=== PATIENT | male | born 1945 | race Caucasian/White ===

== ENCOUNTER 2019-06-07 15:53 | Inpatient (IN) | payer OTHER, MEDICARE ==
[~2019-06-07] VITALS: Ht 185.4 cm; Wt 139.1 kg
[2019-06-07 16:33] LABS: BASOPHILS # (AUTO) 0.1 X10'3 (0-0.2); BASOPHILS % (AUTO) 0.5 % (0-1); EOSINOPHILS # (AUTO) 0.4 X10'3 (0-0.9); EOSINOPHILS % (AUTO) 2.8 % (0-6); HEMATOCRIT 50.2 % (42.0-52.0); HEMOGLOBIN 16.6 g/dl (14.0-17.9); LYMPHOCYTES # (AUTO) 1.5 X10'3 (1.1-4.8); MEAN CORPUSCULAR HEMOGLOBIN 30.6 PG (27.0-31.0); MEAN CORPUSCULAR VOLUME 92.8 FL (78-98); MEAN PLATELET VOLUME 9.4 FL (7.4-10.4); MONOCYTES # (AUTO) 0.7 X10'3 (0-0.9); MONOCYTES % (AUTO) 5.4 % (2-12); NEUTROPHILS # (AUTO) 10.2 X10'3 (1.8-7.7); NEUTROPHILS % (AUTO) 79.3 % (42-75); PLATELET COUNT 232 X10'3 (140-440); RED BLOOD COUNT 5.41 X10'6 (4.70-6.10); RED CELL DISTRIBUTION WIDTH 15.1 % (11.5-14.5); WHITE BLOOD COUNT 12.9 X10'3 (4.5-11.0)
[2019-06-07 16:50] LABS: ALANINE AMINOTRANSFERASE 24 U/L (12-78); ALBUMIN 4.2 G/DL (3.4-5.0); ALKALINE PHOSPHATASE 71 IU/L (46-116); ANION GAP 5 (8-16); ASPARTATE AMINO TRANSFERASE 23 U/L (10-37); BILIRUBIN,TOTAL 0.9 MG/DL (0.1-1.0); BLOOD UREA NITROGEN 20 MG/DL (7-18); BUN/CREATININE RATIO 20.2 (5.4-32.0); CALCIUM 9.9 MG/DL (8.5-10.1); CHLORIDE 101 MMOL/L (99-107); CREATININE 0.99 MG/DL (0.60-1.10); GLUCOSE 148 MG/DL (70-104); POTASSIUM 5.2 MMOL/L (3.5-5.1); SODIUM 138 MMOL/L (135-145); TOTAL CARBON DIOXIDE 32.3 MMOL/L (24-32); TOTAL PROTEIN 8.3 G/DL (6.4-8.2); eGFR 74 ML/MIN
[2019-06-07] MEDS ORDERED: iohexol 350MG/ML 100ml bottle IV ONE (17:07)
[2019-06-07] MEDS ORDERED: heparin 10,000 units/1 ML INJ IV ONE (18:45)
[2019-06-07] MEDS ORDERED: nitroGLYCERIN 0.4mg SUBLingual tab SL PRN ×2 (18:45→20:15)
[2019-06-07] MEDS ORDERED: aspirin 81mg tab.chew PO ONE (18:45)
[2019-06-07 19:04] LABS: PARTIAL THROMBOPLASTIN TIME 28 SECONDS (22-32)
[2019-06-07] MEDS: heparin 25,000 UNIT/250ml bag 250 ML IV SCH (19:38)
[2019-06-07] MEDS ORDERED: magnesium Cl slow-release 64mg tablet PO PRN (20:15)
[2019-06-07] MEDS ORDERED: potassium CL 10mEq/100ml bag 100 ML IV PRN ×2 (20:15)
[2019-06-07] MEDS ORDERED: magnesium hydroxide 30ml (MOM) UD suspension PO PRN (20:15)
[2019-06-07] MEDS ORDERED: magnesium 2GM in 50ml NS 50 ML IV PRN (20:15)
[2019-06-07] MEDS ORDERED: acetaminophen 325mg tablet PO PRN ×2 (20:15)
[2019-06-07] MEDS ORDERED: HYDROcodone/acetaminophen 5mg/325mg tablet PO PRN (20:15)
[2019-06-07] MEDS ORDERED: potassium Cl 20 mEq SR tablet PO PRN ×2 (20:15)
[2019-06-07] MEDS ORDERED: mag hydrox/Alum hydrox/simeth 30ml oral suspension PO PRN (20:15)
[2019-06-07] MEDS ORDERED: ondansetron/PF 4mg/2ml inj IV PRN (20:15)
[2019-06-07] MEDS ORDERED: magnesium 4gm in 100ml NS 100 ML IV PRN (20:15)
[2019-06-07] MEDS ORDERED: morphine 2 MG/ML inj. syringe IV PRN ×2 (20:15)
--- NOTE | 2019-06-07 20:38 | NUR ---
ATTEMPTED TO CALL REPORT TO FLOOR; BEDSIDE RN WILL RE-CONTACT THIS FOAMITE MIXER FOR REPORT.
--- NOTE | 2019-06-07 20:45 | NUR ---
I have received report from MARILYN FIGUEROA and had the opportunity to ask questions and assume patient care. Report as follows: admitted for NSTEMI, chest pain and SOB x2-3 weeks. HX: NC and CABG x5. CT to rule out AAA. 20G IV to L Wrist with Heparin drip at 1000 units/hr. Aspirin 324mg given in ER. A&O x4. trops elevated at 0.62 and 2.84. EKG no changes.
--- NOTE | 2019-06-07 20:46 | NUR ---
Called to get report on patient.
[2019-06-07 21:10] VITALS: BP 155/80
--- NOTE | 2019-06-07 21:10 | NUR ---
[place] [facility] [place] [facility] [place] ambulated [facility] to hospital bed. Patient arrived with granddaughter and all known belongings. Granddaughter took all belongings home with her expect 2 cellular devices left at bedside.
[2019-06-07] MEDS ORDERED: ALLO100T PO (22:05)
[2019-06-07] MEDS ORDERED: AMLO2.5T2 PO (22:06)
[2019-06-07] MEDS ORDERED: BENA40TA73 PO (22:07)
[2019-06-07] MEDS ORDERED: HYDR25TA4 PO (22:08)
[2019-06-07] MEDS ORDERED: INSU100V37 SQ ×2 (22:10→22:12)
[2019-06-07] MEDS ORDERED: LEVO100T PO (22:13)
[2019-06-07] MEDS ORDERED: METF500T PO (22:18)
[2019-06-07] MEDS ORDERED: METO100T14 PO (22:19)
[2019-06-07] MEDS ORDERED: NAPR220C15 PO (22:20)
[2019-06-07] MEDS ORDERED: FAMO40TA7 PO (22:22)
[2019-06-07] MEDS ORDERED: PRAV80TA3 PO (22:22)
--- NOTE | 2019-06-07 22:55 | NUR ---
NOTIFIED PAGER ID: [phone] MESSAGE: Chris Fransk ACCArmando 314. Critical Trop of 8.10. Med rec is in and needs reviewed. MARILYN Suero ext [phone]
[2019-06-07] MEDS ORDERED: glucagon, human recombinant 1mg kit SUBCUT PRN (23:05)
[2019-06-07] MEDS ORDERED: dextrose ORAL solution 15 GM/59 ML bottle PO PRN ×2 (23:05)
[2019-06-07] MEDS ORDERED: MESSAGE TO PHARMACY PO ONE (23:05)
[2019-06-07] MEDS ORDERED: tirofiban 5mg in NS 100mL 100 ML IV SCH (23:05)
[2019-06-07] MEDS ORDERED: dextrose 50%-water 50ml dispensing syringe IV PRN ×2 (23:05)
[2019-06-07] MEDS ORDERED: metoprolol tartrate 50mg tablet PO ONE (23:20)
[2019-06-07] MEDS ORDERED: pravastatin 40mg tablet PO ONE (23:20)
[2019-06-08] VITALS (19 sets, daily range): BP systolic 80–181; BP diastolic 47–84
[2019-06-08] MEDS: heparin 10,000 units/1 ML INJ IV PRN ×2 (02:31→16:49)
[2019-06-08] MEDS: heparin 25,000 UNIT/250ml bag 250 ML IV SCH ×2 (02:32→16:43)
[2019-06-08] MEDS: tirofiban 5mg in NS 100mL 100 ML IV SCH ×7 (03:15→23:56)
[2019-06-08 04:18] LABS: BASOPHILS # (AUTO) 0.1 X10'3 (0-0.2); BASOPHILS % (AUTO) 0.6 % (0-1); EOSINOPHILS # (AUTO) 0.6 X10'3 (0-0.9); EOSINOPHILS % (AUTO) 5.7 % (0-6); HEMATOCRIT 45.4 % (42.0-52.0); HEMOGLOBIN 15.4 g/dl (14.0-17.9); LYMPHOCYTES # (AUTO) 2.1 X10'3 (1.1-4.8); LYMPHOCYTES % (AUTO) 19.6 % (21-51); MEAN CORPUSCULAR HEMOGLOBIN 31.3 PG (27.0-31.0); MEAN CORPUSCULAR HGB CONC 33.9 g/dL (33.0-36.5); MEAN CORPUSCULAR VOLUME 92.4 FL (78-98); MEAN PLATELET VOLUME 9.7 FL (7.4-10.4); MONOCYTES # (AUTO) 0.9 X10'3 (0-0.9); MONOCYTES % (AUTO) 8.1 % (2-12); PLATELET COUNT 196 X10'3 (140-440); RED BLOOD COUNT 4.91 X10'6 (4.70-6.10); RED CELL DISTRIBUTION WIDTH 15.4 % (11.5-14.5); WHITE BLOOD COUNT 10.6 X10'3 (4.5-11.0)
[2019-06-08 04:36] LABS: ALBUMIN 3.5 G/DL (3.4-5.0); ANION GAP 6 (8-16); BLOOD UREA NITROGEN 19 MG/DL (7-18); BUN/CREATININE RATIO 21.6 (5.4-32.0); CALCIUM 9.7 MG/DL (8.5-10.1); CHLORIDE 103 MMOL/L (99-107); CREATININE 0.88 MG/DL (0.60-1.10); GLUCOSE 147 MG/DL (70-104); MAGNESIUM 1.7 MG/DL (1.5-2.4); POTASSIUM 4.2 MMOL/L (3.5-5.1); SODIUM 139 MMOL/L (135-145); TOTAL CARBON DIOXIDE 29.9 MMOL/L (24-32); eGFR 85 ML/MIN
--- NOTE | 2019-06-08 04:44 | NUR ---
PAGER ID: [phone] MESSAGE: Chris Franks 314. Critical Trop 19.51. from 12.12. MARILYN Suero ext [phone]
--- NOTE | 2019-06-08 04:45 | NUR ---
RECEIVED ORDERS FOR REPEAT EKG. WILL CONTINUE TO MONITOR
[2019-06-08 05:06] LABS: HEMOGLOBIN A1C 6.5 % (4.5-6.2)
--- NOTE | 2019-06-08 06:00 | NUR ---
Patient in room MED 314. I have received report from MARILYN Suero and had the opportunity to ask questions and assume patient care.
--- NOTE | 2019-06-08 06:29 | NUR ---
Problems reprioritized. Patient report given, questions answered & plan of care reviewed with MARILYN BAEZ.
[2019-06-08] MEDS: famotidine 20mg tablet PO SCH (07:18)
[2019-06-08] MEDS: levoTHYROXINE 100mcg tablet PO SCH (07:18)
[2019-06-08] MEDS: HYDROchlorothiazide 25mg tablet PO SCH (07:18)
[2019-06-08] MEDS: K and/or MAG REPLACEMENT MC SCH ×2 (07:19→20:00)
[2019-06-08] MEDS ORDERED: metoprolol tartrate 50mg tablet PO SCH (08:00)
[2019-06-08] MEDS ORDERED: heparin 1,000unit/ml 10ml vial 10 ML ONE (08:50)
[2019-06-08] MEDS ORDERED: LIDOcaine 1% (10mg/ml)w/preservative injection 20ml MDV ONE (08:50)
[2019-06-08] MEDS ORDERED: iohexol 350 MG/1 ML 200ml bottle ONE ×2 (08:50→10:07)
[2019-06-08] MEDS ORDERED: iohexol 350 MG/ML 50ML vial IV ONE (08:50)
[2019-06-08] MEDS ORDERED: nitroGLYCERIN-Tridil 50MG/D5W 250 ML IV ONE ×3 (08:50→19:09)
--- NOTE | 2019-06-08 08:55 | NUR ---
Patient to label remover.
[2019-06-08 09:07] LABS: CHOL/HDL RATIO 4.4 (0.00-4.99); CHOLESTEROL 167 MG/DL (0-200); HDL CHOLESTEROL 38 MG/DL (35-60); LDL CHOLESTEROL 105 MG/DL (50-100); TRIGLYCERIDES 212 MG/DL (20-135)
[2019-06-08] MEDS ORDERED: heparin 1,000 UNITS/NS 500ml 500 ML ONE (10:16)
[2019-06-08] MEDS ORDERED: midazolam 2 mg/2 ml injection ONE (10:21)
[2019-06-08] MEDS ORDERED: fentaNYL/PF 50MCG/1 ML 2ML syringe ONE (10:21)
[2019-06-08] MEDS ORDERED: ticagrelor 90mg tablet ONE (10:55)
--- NOTE | 2019-06-08 11:34 | NUR ---
Patient going to RM 2039. Called report to MARILYN Coleman. Plan of care reviewed, all questions answered. All personal belongings collected and sent to ICU.
--- NOTE | 2019-06-08 11:36 | NUR ---
Student Medication Administration: For this medication-pass time frame, all medications were reviewed, dispensed, administered and documented per hospital policy by SN Gianna. Student documentation: I have reviewed and agree with all interventions, assessments performed and documented by SN Gianna.
[2019-06-08] MEDS ORDERED: HYDROcodone/acetaminophen 10/325mg tab PO PRN ×2 (12:05)
[2019-06-08] MEDS ORDERED: proCHLORperazine 10 MG/2 ml inj IV PRN (12:05)
[2019-06-08] MEDS ORDERED: OXAZEpam 15mg capsule PO PRN (12:05)
[2019-06-08] MEDS ORDERED: naproxen sodium 220mg tablet PO PRN (12:10)
[2019-06-08] MEDS: aspirin 81mg tablet.DR PO SCH (12:11)
[2019-06-08] MEDS: normal saline 1000ml 1,000 ML IV SCH ×2 (12:12→22:10)
[2019-06-08] MEDS ORDERED: nitroGLYCERIN-Tridil 50MG/D5W 250 ML IV PRN (12:35)
--- NOTE | 2019-06-08 13:10 | NUR ---
Pt arrived from director of cardiac cath lab. Heparin and aggrastat infusing.
--- NOTE | 2019-06-08 14:10 | NUR ---
Nutrition consult: Pt s/p cardiac cath this AM advanced to heart healthy diet w/ TG 212 this admit. Hx T2DM A1C <7. Pt reports activity and spicy foods increases chest pain per EMR; no hx GERD. Pt would benefit from heart healthy diet ed once stable s/p cath. Will continue to monitor. Addendum: 06/08/19 at [address] Amended: Links added.
[2019-06-08] MEDS: hydrALAZINE 20mg/ml inj. IV PRN (14:23)
[2019-06-08] MEDS ORDERED: lisinopril 20mg tablet PO ONE (15:30)
[2019-06-08] MEDS ORDERED: temazepam 15mg capsule PO PRN (18:00)
--- NOTE | 2019-06-08 18:02 | NUR ---
Dr Dawson in to round. Discussed uncontrolled hypertension and pt's reaction to tridil gtt. Received orders to restart Tridil at low dose. New max dose 10mcg/min. Restoril ordered for HS. Was instructed to feed pt breakfast in morning.
--- NOTE | 2019-06-08 18:18 | NUR ---
Problems reprioritized. Patient report given, questions answered & plan of care reviewed with MARILYN Gonzalez.
[2019-06-08] MEDS: allopurinol 300 MG tablet PO SCH (19:45)
[2019-06-08] MEDS: ticagrelor 90mg tablet PO SCH (19:45)
[2019-06-08] MEDS: docusate sod 100mg capsule PO SCH (19:45)
[2019-06-08] MEDS: atorvastatin 20mg tablet PO SCH (20:53)
[2019-06-08] MEDS: insulin glargine (Lantus) pen - multi-dose SQ SCH (20:56)
[2019-06-08] MEDS ORDERED: pravastatin 40mg tablet PO SCH (21:00)
[2019-06-08] MEDS ORDERED: HumuLIN NPH/Reg 70/30 insulin 10ml vial SQ SCH (21:00)
[2019-06-08] MEDS ORDERED: amLODIPine 5mg tablet PO SCH (21:00)
[2019-06-08] MEDS: cyclobenzaprine 10mg tablet PO PRN (22:12)
[2019-06-08 22:33] LABS: BASOPHILS # (AUTO) 0.1 X10'3 (0-0.2); BASOPHILS % (AUTO) 0.6 % (0-1); EOSINOPHILS # (AUTO) 0.3 X10'3 (0-0.9); EOSINOPHILS % (AUTO) 2.8 % (0-6); HEMATOCRIT 39.8 % (42.0-52.0); HEMOGLOBIN 13.3 g/dl (14.0-17.9); LYMPHOCYTES # (AUTO) 1.7 X10'3 (1.1-4.8); LYMPHOCYTES % (AUTO) 16.2 % (21-51); MEAN CORPUSCULAR HEMOGLOBIN 30.9 PG (27.0-31.0); MEAN CORPUSCULAR HGB CONC 33.5 g/dL (33.0-36.5); MEAN CORPUSCULAR VOLUME 92.4 FL (78-98); MEAN PLATELET VOLUME 9.4 FL (7.4-10.4); MONOCYTES # (AUTO) 0.8 X10'3 (0-0.9); MONOCYTES % (AUTO) 7.6 % (2-12); NEUTROPHILS # (AUTO) 7.8 X10'3 (1.8-7.7); NEUTROPHILS % (AUTO) 72.8 % (42-75); PLATELET COUNT 177 X10'3 (140-440); RED CELL DISTRIBUTION WIDTH 15.1 % (11.5-14.5); WHITE BLOOD COUNT 10.6 X10'3 (4.5-11.0)
[2019-06-09] VITALS (29 sets, daily range): BP systolic 123–186; BP diastolic 51–75
[2019-06-09] MEDS: tirofiban 5mg in NS 100mL 100 ML IV SCH ×6 (03:52→23:50)
[2019-06-09 04:12] LABS: BASOPHILS # (AUTO) 0.1 X10'3 (0-0.2); BASOPHILS % (AUTO) 0.6 % (0-1); EOSINOPHILS # (AUTO) 0.4 X10'3 (0-0.9); EOSINOPHILS % (AUTO) 3.4 % (0-6); HEMATOCRIT 42.2 % (42.0-52.0); HEMOGLOBIN 13.9 g/dl (14.0-17.9); LYMPHOCYTES # (AUTO) 1.5 X10'3 (1.1-4.8); LYMPHOCYTES % (AUTO) 13.6 % (21-51); MEAN CORPUSCULAR HEMOGLOBIN 30.5 PG (27.0-31.0); MEAN CORPUSCULAR HGB CONC 32.9 g/dL (33.0-36.5); MEAN CORPUSCULAR VOLUME 92.8 FL (78-98); MEAN PLATELET VOLUME 9.7 FL (7.4-10.4); MONOCYTES % (AUTO) 9.2 % (2-12); NEUTROPHILS # (AUTO) 8.2 X10'3 (1.8-7.7); NEUTROPHILS % (AUTO) 73.2 % (42-75); PLATELET COUNT 194 X10'3 (140-440); RED BLOOD COUNT 4.55 X10'6 (4.70-6.10); RED CELL DISTRIBUTION WIDTH 15.3 % (11.5-14.5); WHITE BLOOD COUNT 11.2 X10'3 (4.5-11.0)
[2019-06-09 04:26] LABS: ALBUMIN 3.2 G/DL (3.4-5.0); ANION GAP 7 (8-16); BLOOD UREA NITROGEN 20 MG/DL (7-18); BUN/CREATININE RATIO 20.2 (5.4-32.0); CALCIUM 9.2 MG/DL (8.5-10.1); CHLORIDE 105 MMOL/L (99-107); CREATININE 0.99 MG/DL (0.60-1.10); GLUCOSE 175 MG/DL (70-104); MAGNESIUM 1.7 MG/DL (1.5-2.4); POTASSIUM 3.9 MMOL/L (3.5-5.1); SODIUM 139 MMOL/L (135-145); TOTAL CARBON DIOXIDE 27.1 MMOL/L (24-32); eGFR 74 ML/MIN
[2019-06-09 04:33] LABS: TROPONIN I 8.47 NG/ML (0.0-0.05)
[2019-06-09] MEDS: heparin 10,000 units/1 ML INJ IV PRN (05:32)
[2019-06-09] MEDS: heparin 25,000 UNIT/250ml bag 250 ML IV SCH ×2 (05:35→09:44)
[2019-06-09] MEDS: metoprolol succinate 25mg (24-HOUR) SR. Tablet PO SCH (07:17)
[2019-06-09] MEDS: famotidine 20mg tablet PO SCH (07:17)
[2019-06-09] MEDS: lisinopril 20mg tablet PO SCH (07:17)
[2019-06-09] MEDS: ticagrelor 90mg tablet PO SCH ×2 (07:17→19:16)
[2019-06-09] MEDS: HYDROchlorothiazide 25mg tablet PO SCH (07:17)
[2019-06-09] MEDS: levoTHYROXINE 100mcg tablet PO SCH (07:17)
[2019-06-09] MEDS: docusate sod 100mg capsule PO SCH ×2 (07:18→20:00)
[2019-06-09] MEDS: aspirin 81mg tablet.DR PO SCH (07:18)
[2019-06-09] MEDS ORDERED: HumuLIN NPH/Reg 70/30 insulin 10ml vial SQ SCH (08:00)
[2019-06-09] MEDS: K and/or MAG REPLACEMENT MC SCH ×2 (08:00→20:00)
[2019-06-09] MEDS: normal saline 1000ml 1,000 ML IV SCH ×2 (08:10→18:10)
--- NOTE | 2019-06-09 09:19 | NUR ---
Pharmacy called RN to double check if Dr. Dawson wanted to d/c or continue aggrastat infusion since he did not check it in his paper orders, however aggrastat infusion was ordered via telephone via another provider on [employer]. Called Dr. Dawson's office, unable to contact him. Called wastewater analyst lab analyst and talked to RN who will ask Dr. Dawson. Plan to take pt back to wastewater analyst lab analyst today.
[2019-06-09] MEDS ORDERED: magnesium 2GM in 50ml NS 50 ML IV PRN (09:55)
[2019-06-09] MEDS ORDERED: magnesium 4gm in 100ml NS 100 ML IV PRN (09:55)
[2019-06-09] MEDS ORDERED: potassium Cl 20 mEq SR tablet PO PRN (09:55)
[2019-06-09] MEDS ORDERED: potassium CL 10mEq/100ml bag 100 ML IV PRN (09:55)
--- NOTE | 2019-06-09 10:00 | NUR ---
Contacted Dr. Dawson - estimated outside laborer time [phone]. Per MD shore for pt to eat breakfast. Okay with to continue Agrrastat infusion. Per Eunice, goal to keep potassium >4 and Mag >2 per cardiac replacement protocol.
[2019-06-09] MEDS: insulin Lispro (HumaLOG) vial - multi-dose SQ SCH ×3 (10:45→19:58)
[2019-06-09] MEDS: hydrALAZINE 20mg/ml inj. IV PRN (10:48)
--- NOTE | 2019-06-09 12:22 | NUR ---
F/u: Pt/family seen by ED for written/verbal heart healthy diet ed w/ RD contact information. ED reviewed high fiber foods, hydration, lean protein sources, high saturated fat sources, and optimal food alternatives to help pt transition from higher saturated fat meals at home. Pt reports possible peanut allergy causing hives as well as chest pain after chocolate consumption. [facility] allergy list updated by ED and dietary notified. Addendum: 06/09/19 at [address] Amended: Links added.
[2019-06-09] MEDS ORDERED: nitroGLYCERIN-Tridil 50MG/D5W 250 ML IV PRN (12:35)
[2019-06-09] MEDS ORDERED: heparin 1,000unit/ml 10ml vial 10 ML ONE (15:55)
[2019-06-09] MEDS ORDERED: LIDOcaine 1% (10mg/ml)w/preservative injection 20ml MDV ONE (15:55)
[2019-06-09] MEDS ORDERED: nitroGLYCERIN-Tridil 50MG/D5W 250 ML IV ONE (15:55)
[2019-06-09] MEDS ORDERED: iohexol 350 MG/1 ML 200ml bottle ONE (15:55)
[2019-06-09] MEDS ORDERED: midazolam 2 mg/2 ml injection ONE (17:10)
[2019-06-09] MEDS ORDERED: fentaNYL/PF 50MCG/1 ML 2ML syringe ONE ×2 (17:10→18:08)
[2019-06-09] MEDS ORDERED: ticagrelor 90mg tablet ONE (18:09)
[2019-06-09] MEDS: allopurinol 300 MG tablet PO SCH (20:15)
[2019-06-09] MEDS: atorvastatin 20mg tablet PO SCH (20:15)
[2019-06-09] MEDS: insulin glargine (Lantus) pen - multi-dose SQ SCH (22:09)
[2019-06-10] VITALS (13 sets, daily range): BP systolic 100–160; BP diastolic 59–91
[2019-06-10] MEDS: cyclobenzaprine 10mg tablet PO PRN (02:10)
[2019-06-10 02:54] LABS: BASOPHILS % (AUTO) 0.4 % (0-1); EOSINOPHILS # (AUTO) 0.4 X10'3 (0-0.9); EOSINOPHILS % (AUTO) 3.3 % (0-6); HEMATOCRIT 42.4 % (42.0-52.0); HEMOGLOBIN 14.1 g/dl (14.0-17.9); LYMPHOCYTES # (AUTO) 1.5 X10'3 (1.1-4.8); LYMPHOCYTES % (AUTO) 12.8 % (21-51); MEAN CORPUSCULAR HEMOGLOBIN 30.9 PG (27.0-31.0); MEAN CORPUSCULAR HGB CONC 33.3 g/dL (33.0-36.5); MEAN PLATELET VOLUME 9.5 FL (7.4-10.4); MONOCYTES # (AUTO) 1.3 X10'3 (0-0.9); MONOCYTES % (AUTO) 11.2 % (2-12); NEUTROPHILS # (AUTO) 8.2 X10'3 (1.8-7.7); NEUTROPHILS % (AUTO) 72.3 % (42-75); PLATELET COUNT 201 X10'3 (140-440); RED BLOOD COUNT 4.56 X10'6 (4.70-6.10); RED CELL DISTRIBUTION WIDTH 15.2 % (11.5-14.5); WHITE BLOOD COUNT 11.4 X10'3 (4.5-11.0)
[2019-06-10 03:07] LABS: ALBUMIN 3.2 G/DL (3.4-5.0); ANION GAP 5 (8-16); BLOOD UREA NITROGEN 17 MG/DL (7-18); BUN/CREATININE RATIO 15.9 (5.4-32.0); CALCIUM 9.2 MG/DL (8.5-10.1); CHLORIDE 105 MMOL/L (99-107); CREATININE 1.07 MG/DL (0.60-1.10); GLUCOSE 165 MG/DL (70-104); MAGNESIUM 2.5 MG/DL (1.5-2.4); SODIUM 138 MMOL/L (135-145); TOTAL CARBON DIOXIDE 27.8 MMOL/L (24-32); eGFR 68 ML/MIN
[2019-06-10] MEDS: tirofiban 5mg in NS 100mL 100 ML IV SCH (03:50)
[2019-06-10] MEDS: normal saline 1000ml 1,000 ML IV SCH (04:10)
[2019-06-10] MEDS: K and/or MAG REPLACEMENT MC SCH (08:00)
[2019-06-10] MEDS: famotidine 20mg tablet PO SCH (09:04)
[2019-06-10] MEDS: docusate sod 100mg capsule PO SCH (09:04)
[2019-06-10] MEDS: aspirin 81mg tablet.DR PO SCH (09:04)
[2019-06-10] MEDS: levoTHYROXINE 100mcg tablet PO SCH (09:04)
[2019-06-10] MEDS: lisinopril 20mg tablet PO SCH (09:05)
[2019-06-10] MEDS: ticagrelor 90mg tablet PO SCH (09:05)
[2019-06-10] MEDS: metoprolol succinate 25mg (24-HOUR) SR. Tablet PO SCH (09:06)
[2019-06-10] MEDS: HYDROchlorothiazide 25mg tablet PO SCH (09:07)
[2019-06-10] MEDS: insulin Lispro (HumaLOG) vial - multi-dose SQ SCH (09:13)
[2019-06-10] MEDS ORDERED: metoprolol tartrate 25mg tablet PO ONE (10:20)
[2019-06-10] MEDS ORDERED: FURO-150 PO (10:37)
[2019-06-10] MEDS ORDERED: ASPI-1264 PO (10:37)
[2019-06-10] MEDS ORDERED: ATOR20TA66 PO (10:37)
[2019-06-10] MEDS ORDERED: TICA90TA PO (11:14)
--- NOTE | 2019-06-10 12:41 | NUR ---
Patient is stable for discharge per MD orders, all discharge instructions reviewed with patient and questions answered, new prescriptions called in Claribel Lees, ALESSIO and [facility] DC[facility], tele DC'd, belongings collected and sent with patient including phone, climatologist, lower denture, picked up by son, wheeled to renee.
[2019-06-10] MEDS ORDERED: metoprolol tartrate 50mg tablet PO SCH (20:00)
== END 2019-06-10 12:30 | disposition home or self-care (01) | DRG 247 ==
LOC: ER 15:53 → ED HOLD 20:57 → MED 3N 21:10 → ICU 2S 06-08 11:48
PROVIDERS: ADMIT Hospitalist; ATTEND Internal Medicine
PROC: B32T1ZZ Computerized Tomography (CT Scan) of Left Pulmonary Artery using Low Osmolar Contrast (ICD-10-PCS; 2019-06-07)
PROC: B3201ZZ Computerized Tomography (CT Scan) of Thoracic Aorta using Low Osmolar Contrast (ICD-10-PCS; 2019-06-07)
PROC: B32S1ZZ Computerized Tomography (CT Scan) of Right Pulmonary Artery using Low Osmolar Contrast (ICD-10-PCS; 2019-06-07)
PROC: B4201ZZ Computerized Tomography (CT Scan) of Abdominal Aorta using Low Osmolar Contrast (ICD-10-PCS; 2019-06-07)
PROC: B4241ZZ Computerized Tomography (CT Scan) of Superior Mesenteric Artery using Low Osmolar Contrast (ICD-10-PCS; 2019-06-07)
PROC: B4281ZZ Computerized Tomography (CT Scan) of Bilateral Renal Arteries using Low Osmolar Contrast (ICD-10-PCS; 2019-06-07)
PROC: B4211ZZ Computerized Tomography (CT Scan) of Celiac Artery using Low Osmolar Contrast (ICD-10-PCS; 2019-06-07)
PROC: 4A023N7 Measurement of Cardiac Sampling and Pressure, Left Heart, Percutaneous Approach (ICD-10-PCS; principal; 2019-06-08)
PROC: 027034Z Dilation of Coronary Artery, One Artery with Drug-eluting Intraluminal Device, Percutaneous Approach (ICD-10-PCS; 2019-06-08)
PROC: B2111ZZ Fluoroscopy of Multiple Coronary Arteries using Low Osmolar Contrast (ICD-10-PCS; 2019-06-08)
PROC: B2151ZZ Fluoroscopy of Left Heart using Low Osmolar Contrast (ICD-10-PCS; 2019-06-08)
PROC: B2131ZZ Fluoroscopy of Multiple Coronary Artery Bypass Grafts using Low Osmolar Contrast (ICD-10-PCS; 2019-06-08)
PROC: 027034Z Dilation of Coronary Artery, One Artery with Drug-eluting Intraluminal Device, Percutaneous Approach (ICD-10-PCS; 2019-06-09)
DX: I21.4 Non-ST elevation (NSTEMI) myocardial infarction (principal); Z68.41 Body mass index [BMI] 40.0-44.9, adult; E66.01 Morbid (severe) obesity due to excess calories; I25.10 Atherosclerotic heart disease of native coronary artery without angina pectoris; E03.9 Hypothyroidism, unspecified; E11.9 Type 2 diabetes mellitus without complications; E87.5 Hyperkalemia; E27.8 Other specified disorders of adrenal gland; K21.9 Gastro-esophageal reflux disease without esophagitis; G89.4 Chronic pain syndrome; E78.5 Hyperlipidemia, unspecified; I10 Essential (primary) hypertension; M10.9 Gout, unspecified; M19.90 Unspecified osteoarthritis, unspecified site; Z79.02 Long term (current) use of antithrombotics/antiplatelets; Z79.4 Long term (current) use of insulin; Z79.82 Long term (current) use of aspirin; Z79.899 Other long term (current) drug therapy; Z87.891 Personal history of nicotine dependence; Z95.1 Presence of aortocoronary bypass graft
CPT/HCPCS: 93306; 93459; 93567; 96374; 99291; C9604; 36415; 71045; 71275; 74174; 76937; 80048; 80053; 80061; 82948; 83036; 83735; 83880; 84443; 84484; 85025; 85347; 85610; 85730; 87081; 93005; 97116; 97162; 97530; 99152; 99153; A4620; A6258; C1725; C1769; C1874; C1884; G0378; J0360; J1644; J1815; J2001; J2250; J2270; J2405; J3010; J3246; J3475; J3490; J7030; Q9967